=== PATIENT | male | born 1990 | race African-American/Black ===

== ENCOUNTER 2019-09-22 21:56 | Emergency (ER) | payer SELFPAY ==
--- NOTE | 2019-09-22 22:15 | NUR ---
Patient was called to be triaged. Patient was not present.
--- NOTE | 2019-09-22 22:53 | NUR ---
Patient left withbout beinf triaged or seen by ERMD.
== END 2019-09-22 22:54 | disposition left against medical advice (07) ==
LOC: ER 21:56
DX: Z53.21 Procedure and treatment not carried out due to patient leaving prior to being seen by health care provider (principal)